=== PATIENT | female | born 1985 | race Caucasian/White ===

== ENCOUNTER → 2018-05-06 | Outpatient (CLI) | payer OTHER ==
--- NOTE | 2018-05-11 16:11 | RADIOLOGY REPORT (SQ) ---
EXAM DESCRIPTION: PET CT SKULL/THIGH COMPLETED DATE/TIME: 05/06/2018 9:07 pm REASON FOR STUDY: SOLITARY PULMONARY NODULE R91.1 SOLITARY PULMONARY NODULE COMPARISON: Outside CT of the chest dated 02/20/2018. RADIONUCLIDE AND DOSE: 10 mCi F18 FDG The route of agent administration: Intravenous FASTING BLOOD SUGAR: 83 mg/dl CONTRAST TYPE AND DOSE: No CT contrast given. TECHNIQUE: Blood glucose level was verified. Above dose of FDG was injected intravenously. 2-D seg mented attenuation correction images were obtained from the base of the skull to the midthighs. Nonc ontrast CT images were obtained for attenuation correction and fusion with emission images. CT image s were performed without oral or intravenous contrast and are not sensitive for parenchymal lesions. A series of overlapping emission PET images were obtained. Images reviewed and manipulated at [facility] work station by the radiologist. Images stored on PACS. LIMITATIONS: None. FINDINGS: HEAD AND NECK: No areas of abnormal metabolic activity in the soft tissues of the head and neck. CHEST: Small lymph node in the right supraclavicular region, measuring 9 mm. Mean SUV slightly above baseline, measuring 1.79. Multiple bilateral axillary lymph nodes, more prominent on the right. Lara rgical clips in the left axilla. Lymph nodes in the right axilla measure from 1.4 cm to 2 cm and in the left axilla the largest measures 1.3 cm. Mean SUV values of the right axillary lymph nodes range from 2.35 to 3.04 and in the left axilla mean SUV 1.38. Focal area of mild pleural thickening in th e medial right lung base unchanged. No unusual activity on PET images. ABDOMEN AND PELVIS: No areas of abnormal metabolic activity in the abdomen or pelvis. Expected physi ologic activity is present in the genitourinary system and bowel. PROXIMAL LOWER EXTREMITIES: No areas of abnormal metabolic activity in the soft tissues of the lower extremities. BONES: No abnormal metabolic activity in the visualized skeleton. ADDITIONAL CT FINDINGS: No additional significant findings on the noncontrast CT images. OTHER: No other significant findings. Blood pool mean SUV activity 1.21 and soft tissue mean SUV act ivity 1.72. IMPRESSION: BILATERAL AXILLARY LYMPH NODES, RIGHT GREATER THAN LEFT, AND MILD RIGHT SUPRACLAVICULAR ADENOPATHY. INCREASED SUV VALUES, GREATEST IN THE RIGHT AXILLA. THESE FINDINGS ARE NONSPECIFIC AND COULD BE DUE TO MALIGNANT PROCESS SUCH LYMPHOMA OR METASTASES, INFECTION, OR INFLAMMATION. CORREL ATE WITH PREVIOUS LYMPH NODE BIOPSY. IF DESIRED, BIOPSY COULD BE PERFORMED OF ENLARGED RIGHT AXILLAR Y LYMPH NODES WITH ULTRASOUND GUIDANCE. THE FOCAL AREA OF MILD PLEURAL THICKENING IN THE MEDIAL RIGH T LUNG BASE IS UNCHANGED AND DEMONSTRATES NO UNUSUAL METABOLIC ACTIVITY. REMAINDER OF THE STUDY IS O THERWISE UNREMARKABLE. TECHNICAL DOCUMENTATION: JOB ID: [id number] [employer]- All Rights Reserved Reading location - IP/workstation name: [id number]
== END ==
LOC: RAD 18:23
PROVIDERS: ATTEND Nurse Practitioner Critical Care Medicine
DX: R91.1 Solitary pulmonary nodule (principal)
CPT/HCPCS: 78815; A9552